=== PATIENT | female | born 1965 | race Two or more races ===

== ENCOUNTER → 2024-01-01 | Day surgery (SDC) | payer MEDICAID ==
[2023-12-30 09:10] LABS: Urine Bacteria None Seen /hpf (None Seen); Urine WBC None Seen /hpf (0 - 5)
[2023-12-30 09:41] LABS: Urine Blood Negative /uL (Negative); Urine Clarity Clear (Clear); Urine Color Light-Yellow (Yellow); Urine Protein, UAD Negative (Negative); Urine Specific Gravity 1.019 (1.001-1.035); Urine Urobilinogen Normal (Negative)
[2023-12-30 09:56] LABS: INR 1.08 (0.9-1.15); Partial Thromboplastin Time 27.5 SEC (24.5-34.5); Prothrombin Time 11.4 sec (9.3-11.8)
[2023-12-30 10:06] LABS: Alanine Aminotransferase 17 U/L (7-40); Albumin 4.1 g/dL (3.2-4.8); Alkaline Phosphatase 72 U/L (46-116); Anion Gap 5 (5-15); Aspartate Aminotransferase 22 U/L (13-40); BUN/Creatinine Ratio 25.3 (10.0-20.0); Blood Urea Nitrogen 21 mg/dL (9-23); Calcium 9.6 mg/dL (8.7-10.4); Carbon Dioxide 28 mmol/L (20-31); Chloride 111 mmol/L (98-107); Glucose 86 mg/dL (74-106); Potassium 4.6 mmol/L (3.5-5.1); Sodium 144 mmol/L (136-145)
[2023-12-30 10:07] LABS: Bilirubin, Total 0.4 mg/dL (0.2-1.0); Total Protein 6.5 g/dL (5.7-8.2)
[2023-12-30 10:08] LABS: Basophils # (auto) 0 10 ^3/uL (0-0.2); Basophils % (auto) 0.5 % (0.0-2.0); Eosinophils # (auto) 0.2 10 ^3/uL (0-0.8); Eosinophils % (auto) 2.9 % (0.0-7.0); Hematocrit 37.2 % (36.0-46.0); Hemoglobin 12.7 g/dL (12.2-16.2); Lymphocytes # (auto) 1.5 10 ^3/uL (0.4-5.4); Lymphocytes % (auto) 25.3 % (10.0-50.0); Mean Corpuscular Hemoglobin 31.2 pg (28.0-32.0); Mean Corpuscular Volume 91.7 fL (80.0-100.0); Monocytes # (auto) 0.5 10 ^3/uL (0-1.3); Monocytes % (auto) 8.3 % (0.0-12.0); Neutrophils # (auto) 3.8 10 ^3/uL (1.6-8.6); Platelet Count (auto) 225 10^3/uL (140-450); Red Blood Cells 4.05 10^6/uL (4.0-5.20); Red Cell Distribution Width 13.3 % (11.8-14.3); White Blood Cell 6.1 10^3/uL (4.4-10.8)
[~2024-01-01] VITALS: Ht 165.1 cm; Wt 93.4 kg
[~2024-01-01] MED LIST: ATOR10TA PO; DexAMETHasone SOD PHOS 10MG/1ML VIAL INJ ONE; FLUMAZENIL 0.1 MG/ML INJ 10ML MDV IV PRN; GLYCOPYRROLATE 0.2 MG/ML 1ML VIAL ONE; HYDROmorphone HCL 2 MG/ML VL/or syr IV PRN; KETAMINE 50mg/ML 1ml syringe ONE; KETOROLAC TROMETH 30 MG/ML 1ML VIAL ONE; LABE100T7 PO; LIDOCAINE 2% (LOCAL ANESTH.) PF 5ml SDV ONE; NALOXONE HCL 0.4 MG/ML VIAL IV PRN; ONDANSETRON HCL 4 MG/2 ML VIAL IV PRN; ONDANSETRON HCL 4 MG/2 ML VIAL ONE; PROPOFOL 10 MG/ML 20 ML IV ONE; TADA5TAB11 PO; ceFAZolin 2 GM/D5W100ml 100 ML IV ONE; ePHEDrine SULFATE 50 MG/ML AMP IV PRN; fentaNYL CITRATE 100 MCG/2 ML VL IV PRN; hydrALAZINE HCL 20 MG/ML VL IV PRN; oxyCODONE HCL 5MG TAB PO PRN
[2024-01-01] MEDS: BUPIVACAINE 0.5% MPF INJ 30ML SDV IJ ONE (09:58)
[2024-01-01 10:17] VITALS: PULSE 72; RESP 17; TEMP 98.2; O2SAT 99
--- NOTE | 2024-01-01 10:20 | DVHOP2 ---
Operative Report - 2 Report Details Date: 01/01/24 Preop Diagnosis: 1. Right foot bone spur 2. Right foot pain Postop Diagnosis: Same as preop Surgeon: Amisha Hernandez MD Anesthesiologist: See anesthesia Anesthesia: Mac Consent: The patient was informed of the risks and benefits of the procedure. These include but are not limited to complications of anesthesia, postoperative infection, incomplete relief of symptoms, recurrence of symptoms, damage to blood vessels, nerves and tendons, deep venous thrombosis, pulmonary embolism and possible need for repeat surgery in the future. Complications: None Estimated Blood Loss: Minimal Fluids: See anesthesia Findings: Consistent with diagnosis Indications for Surgery: Worsening right foot pain Name of Procedure Performed 1. Right foot bone spur excision (73196) Procedure Details Procedure Details: PRE-PROCEDURE INFORMATION: In the pre-op holding area, the extremity to be operated on was clearly marked and the patient verified correct laterality of the marking. The patient was transferred to the OR table and placed in a supine position. A timeout was performed in which identification of the correct patient, procedure, location, and materials was done. The right foot and leg were prepped and draped in normal sterile fashion. The foot and leg were exsanguinated and the calf tourniquet was inflated to to 50 mmHg. DESCRIPTION OF PROCEDURE: Attention was directed to the right hallux where the exostosis was located. Incision was made with a 15 blade. Using blunt dissection, the neurovascular and tendinous structures were avoided. The dissection was carried down to the level of the bone. Using a rongeur the exostosis was then removed its entirety. Using intraoperative fluoroscopy, the noted exostosis was results. The incision was then closed with a 4-0 nylon. All surgical wounds were irrigated copiously with saline and closed in layers with the aforementioned suture material. A dry sterile dressing was placed on the surgical extremity. The patient was placed in a postop shoe. POSTOPERATIVE INFORMATION: The patient tolerated the above noted procedure and anesthesia well and was transferred to the PACU with vital signs stable, and vascular status intact with capillary refill intact to all digits. Postoperative instructions reviewed in detail with the patient with written instructions provided. Patient will return to clinic in approximately 10-14 days for first postoperative visit. Patient has the number of the clinic and was instructed to call prior to that time should any problems, questions, or concerns arise. Condition Good Disposition Home AMISHA HERNANDEZ DPM Jan 01, 2024 10:20
[2024-01-01 10:47] VITALS: BP 118/66; PULSE 61; RESP 20; O2SAT 95
== END | disposition home or self-care (01) ==
LOC: SUR 07:42
PROVIDERS: ATTEND Podiatrist
DX: M77.8 Other enthesopathies, not elsewhere classified (principal); M89.8X7 Other specified disorders of bone, ankle and foot; I10 Essential (primary) hypertension; E66.01 Morbid (severe) obesity due to excess calories; Z79.899 Other long term (current) drug therapy; Z90.49 Acquired absence of other specified parts of digestive tract; Z98.84 Bariatric surgery status; Z88.2 Allergy status to sulfonamides; Z98.890 Other specified postprocedural states
CPT/HCPCS: 28124; 36415; 80053; 81001; 85025; 85610; 85730; J1100; J1885; J2003; J2405; J2704; J3490